=== PATIENT | male | born 1960 | race Caucasian/White ===

== ENCOUNTER 2017-07-12 08:10 | Emergency (ER) | payer BC ==
--- NOTE | 2017-07-12 09:33 | RAD ---
CLINICAL HISTORY: Low back pain after falling 8 feet from a roof. COMPARISON: None TECHNIQUE: Axial CT images of the pelvis were obtained without intravenous contrast. Reformats in the sagittal and coronal planes were created and reviewed. FINDINGS: The visualized segments of small and large bowel are not distended. The appendix Is grossly normal appearance without pathologic dilatation. There is no gross retroperitoneal or mesenteric lymphadenopathy in the visualized portions of the lower abdomen and pelvis. The lower abdominal aorta is normal in course and diameter. The arterial and venous structures of the pelvis and upper thighs are normal in size and morphology. At L5/S1 there are bilateral pars interarticularis defects, well-corticated and the margins, yielding a small degree of grade 1 L5 over S1 anterolisthesis. There is no definite fracture or dislocation identified the pelvis. Mild degenerative changes at the hips include a very mild degree of osteophyte formation. IMPRESSION: Degenerative changes as described above without acute fracture or dislocation.
--- NOTE | 2017-07-12 09:36 | RAD ---
INDICATION: Trauma, low back pain. COMPARISON: There are no prior studies available for comparison. TECHNIQUE: Contiguous axial sections were obtained beginning above the T12 vertebra and continuing through the L5-S1 disc space. Images were reconstructed in the sagittal and coronal planes. FINDINGS: There is mild anterior subluxation of L5 relative to S1 consistent with grade 1 anterior spondylolisthesis. There is chronic bilateral spondylolysis at the L5 level. There is spina bifida occulta at the S1 level. No acute fracture is seen. At the L2-L3 level there is a mild broad-based disc bulge and mild hypertrophic changes within the facet joints. There is mild spinal canal narrowing. Neural foramen appear patent on both sides. At the L3-L4 level there is a mild broad-based disc bulge and mild hypertrophic changes within the facet joints. There is mild spinal canal narrowing. There is mild neural foraminal narrowing on the left side. At the L4-L5 level there is no evidence for disc bulge or herniation. The spinal canal appears widely patent. There are moderate hypertrophic changes within the facet joints. Neural foramen appear patent on both sides. At the L5-S1 level there is a mild broad-based disc bulge and moderate hypertrophic changes within the facet joints. No significant spinal canal narrowing is present. There is moderate bilateral neural foraminal narrowing. IMPRESSION: 1. NO EVIDENCE FOR ACUTE FRACTURE. 2. GRADE I ANTERIOR SPONDYLOLISTHESIS AT THE L5-S1 LEVEL AND BILATERAL SPONDYLOLYSIS AT THE L5 LEVEL. 3. MILD TO MODERATE LUMBAR SPONDYLITIC CHANGES.
[2017-07-12 10:25] VITALS: BP 133/82
--- NOTE | 2017-07-16 18:32 | ED ---
Melissa Lieberman Thomas scribed for Sam Hernández MD on 07/12/17 at 0903 . Back Pain - HPI Summary HPI Summary: The pt is a 32 y/o M presenting to the ED c/o lower back pain s/p falling off of an 8-foot-high roof yesterday. The patient landed on his feet. The pain is constant and has progressively worsened since onset last night. The pain is described as spasms. The pain is rated 7/10. The pain is aggravated by movement and is alleviated by ibuprofen. Pt denies LOC, hip pain, knee pain, foot pain, upper back pain, and neck pain. - History of Current Complaint Chief Complaint: EDGeneral Stated Complaint: FALL OFF ROOF YESTERDAY Time Seen by Provider: 07/12/17 08:25 Hx Obtained From: Patient Onset/Duration: Lasting Days - 1, Still Present, Worse Since - progressively Onset/Duration: Still Present Timing: Constant Back Pain Location: Is Discrete @ - lower back Severity Currently: Moderate Pain Intensity: 7 Pain Scale Used: 0-10 Numeric Character: Unable to Describe - spasms Aggravating Symptom(s): Movement Alleviating Symptom(s): OTC Meds - ibuprofen Associated Signs And Symptoms: Positive: Other - NEGATIVE: LOC, hip pain, knee pain, foot pain, upper back pain, and neck pain - Allergies/Home Medications Allergies/Adverse Reactions: Allergies Allergy/AdvReac Type Severity Reaction Status Date / Time No Known Allergies Allergy Verified 07/12/17 10:18 PMH/Surg Hx/FS Hx/Imm Hx Previously Healthy: Yes Endocrine/Hematology History: Denies: Hx Diabetes Cardiovascular History: Denies: Hx Hypertension - Surgical History Surgery Procedure, Year, and Place: Knee repair Infectious Disease History: No Infectious Disease History: Denies: Traveled Outside the [place] in Last 30 Days - Family History Known Family History: Positive: Other - [place] - Social History Alcohol Use: Occasionally Hx Substance Use: No Substance Use Type: Reports: None Hx Tobacco Use: No Smoking Status (MU): Never Smoked Tobacco Review of Systems Negative: Fever Positive: Other - Lower back pain; NEGATIVE: upper back pain, hip pain, knee pain, foot pain, neck pain Neurological: Negative - LOC All Other Systems Reviewed And Are Negative: Yes Physical Exam - Summary Physical Exam Summary: VITAL SIGNS: Reviewed. GENERAL: Patient is a well-developed and nourished male who is lying comfortable in the stretcher. Patient is not in any acute respiratory distress. HEAD AND FACE: No signs of trauma. No ecchymosis, hematomas or skull depressions. No sinus tenderness. EYES: PERRLA, EOMI x 2, No injected conjunctiva, no nystagmus. EARS: Hearing grossly intact. Ear canals and tympanic membranes are within normal limits. MOUTH: Oropharynx within normal limits. NECK: Supple, trachea is midline, no adenopathy, no JVD, no carotid bruit, no c- spine tenderness, neck with full ROM. CHEST: Symmetric, no tenderness at palpation LUNGS: Clear to auscultation bilaterally. No wheezing or crackles. CVS: Regular rate and rhythm, S1 and S2 present, no murmurs or gallops appreciated. ABDOMEN: Soft, non-tender. No signs of distention. No rebound no guarding, and no masses palpated. Bowel sounds are normal. BACK: The patient has bilateral paraspinal tenderness. He has tenderness to his lumbar spine. EXTREMITIES: FROM in all major joints, no edema, no cyanosis or clubbing. NEURO: Alert and oriented x 3. No acute neurological deficits. Speech is normal and follows commands. SKIN: Dry and warm Triage Information Reviewed: Yes Vital Signs On Initial Exam: Initial Vitals Temp Pulse Resp BP Pulse Ox 97.8 F 80 18 155/91 99 07/12/17 08:11 07/12/17 08:11 07/12/17 08:11 07/12/17 08:11 07/12/17 08:11 Vital Signs Reviewed: Yes - Gold Coma Scale Coma Scale Total: 15 Diagnostics - Vital Signs Vital Signs Temp Pulse Resp BP Pulse Ox 07/12/17 08:11 97.8 F 80 18 155/91 99 - Laboratory Lab Statement: Any lab studies that have been ordered have been reviewed, and results considered in the medical decision making process. - CT CT Pelvis CT Interpretation: No Acute Changes - Degenerative changes as described above without acute fracture or dislocation. ED physician has reviewed this report and agrees. CT Interpretation Completed By: Radiologist CT L-Spine CT Interpretation: No Acute Changes - 1. NO EVIDENCE FOR ACUTE FRACTURE. 2. GRADE I ANTERIOR SPONDYLOLISTHESIS AT THE L5-S1 LEVEL AND BILATERAL SPONDYLOLYSIS AT THE L5 LEVEL. 3. MILD TO MODERATE LUMBAR SPONDYLITIC CHANGES. ED physician has reviewed this report and agrees. CT Interpretation Completed By: Radiologist Back Pain Course/Dx - Course Assessment/Plan: The pt is a 32 y/o M presenting to the ED c/o lower back pain s /p falling off of an 8-foot-high roof yesterday. The patient landed on his feet. The pain is constant and has progressively worsened since onset last night. The pain is described as spasms. The pain is rated 7/10. The pain is aggravated by movement and is alleviated by ibuprofen. Pt denies LOC, hip pain, knee pain, foot pain, upper back pain, and neck pain. CT Pelvis shows Degenerative changes as described above without acute fracture or dislocation. CT L-Spine shows 1. NO EVIDENCE FOR ACUTE FRACTURE. 2. GRADE I ANTERIOR SPONDYLOLISTHESIS AT THE L5-S1 LEVEL AND BILATERAL SPONDYLOLYSIS AT THE L5 LEVEL. 3. MILD TO MODERATE LUMBAR SPONDYLITIC CHANGES. The patient has minimal pain since he took Ibuprofen 600mg. He is ambulating with a steady walk. Since the CTs are negative, he will be discharged home with follow up by primary care provider. I did not obtain radiographs of the lower extremities, upper back , or C-Spine since the patient has no pain in those areas. The patient is ambulating with no pain. - Diagnoses Provider Diagnoses: Back pain Discharge - Discharge Plan Condition: Stable Disposition: HOME Prescriptions: HYDROcodone/ACETAMIN 5-325 MG* [[place] 5-325 TAB*] 1 tab PO Q6H PRN #12 tab MDD 4 PRN Reason: Pain Ibuprofen TAB* [Motrin TAB* 800 MG] 800 mg PO ONCE #30 tab Methocarbamol [Robaxin-750 MG TAB] 750 mg PO TID #12 tab Patient Education Materials: Back Pain (ED) Referrals: Wes Shelton NP [Primary Care Provider] - 3 Days Additional Instructions: Follow up with your primary care provider in 3 days. Return to the emergency department for any new or worsening symptoms. The documentation as recorded by the Melissa tiwari Thomas accurately reflects the service I personally performed and the decisions made by , Sam Hernández MD.
== END 2017-07-12 10:34 | disposition home or self-care (01) ==
LOC: ED 08:10
DX: M54.5 Low back pain (principal); W13.2XXA Fall from, out of or through roof, initial encounter; Y92.9 Unspecified place or not applicable
CPT/HCPCS: 72131; 72192; 99282